=== PATIENT | male | born 1945 | race Caucasian/White ===

== ENCOUNTER 2023-12-22 07:01 | Observation (INO) ==
--- NOTE | 2023-10-13 09:41 | PAT Medication Instructions ---
Medication Instructions Date of Service October 13, 2023 Home Medications Balance Of Nature 1 dose PO UD ascorbic acid (vitamin C) 1,000 mg tablet 1 g PO TID aspirin 81 mg tablet,delayed release 81 mg PO QAM camphor-menthol 0.8 %-3.5 % topical gel 1 applic topical BID PRN carvedilol 12.5 mg tablet 12.5 mg PO BID cholecalciferol (vitamin D3) 25 mcg (1,000 unit) tablet (Vitamin D3) 1,000 mcg PO BID fluticasone propionate 50 mcg/actuation nasal spray,suspension 1 spray intranasal QAM ibuprofen 800 mg tablet 800 mg PO TID PRN Pain lidocaine 5 % topical cream 1 applic topical BID PRN Pain lisinopril 10 mg tablet 10 mg PO QAM magnesium oxide 420 mg tablet 420 mg PO DAILY metformin 1,000 mg tablet 1,000 mg PO BID pregabalin 100 mg capsule 100 mg PO BID rosuvastatin 10 mg tablet 10 mg PO QAM tadalafil 10 mg tablet 10 mg PO DAILY PRN Sexual Activity vitamin B complex 1 tab PO QAM ASK your surgeon for instructions ibuprofen 800 mg tablet 800 mg PO TID PRN Pain STOP taking 2 weeks before surgery (or as soon as possible if surgery is within 2 weeks) Balance Of Nature 1 dose PO UD STOP taking 24 hours before surgery lidocaine 5 % topical cream 1 applic topical BID PRN Pain camphor-menthol 0.8 %-3.5 % topical gel 1 applic topical BID PRN DO NOT take the morning of surgery ascorbic acid (vitamin C) 1,000 mg tablet 1 g PO TID cholecalciferol (vitamin D3) 25 mcg (1,000 unit) tablet (Vitamin D3) 1,000 mcg PO BID lisinopril 10 mg tablet 10 mg PO QAM magnesium oxide 420 mg tablet 420 mg PO DAILY metformin 1,000 mg tablet 1,000 mg PO BID tadalafil 10 mg tablet 10 mg PO DAILY PRN Sexual Activity vitamin B complex 1 tab PO QAM Take morning of surgery With a small sip of water, OTHERWISE NOTHING TO EAT OR DRINK AFTER MIDNIGHT: aspirin 81 mg tablet,delayed release 81 mg PO QAM (continue as normal unless told otherwise by surgeon) carvedilol 12.5 mg tablet 12.5 mg PO BID fluticasone propionate 50 mcg/actuation nasal spray,suspension 1 spray intranasa l QAM pregabalin 100 mg capsule 100 mg PO BID rosuvastatin 10 mg tablet 10 mg PO QAM Take evening before surgery ascorbic acid (vitamin C) 1,000 mg tablet 1 g PO TID carvedilol 12.5 mg tablet 12.5 mg PO BID cholecalciferol (vitamin D3) 25 mcg (1,000 unit) tablet (Vitamin D3) 1,000 mcg PO BID metformin 1,000 mg tablet 1,000 mg PO BID pregabalin 100 mg capsule 100 mg PO BID tadalafil 10 mg tablet 10 mg PO DAILY PRN Sexual Activity (if needed) Other Notes If you have any questions please call us at [phone] or [phone] or [phone] or [phone]
--- NOTE | 2023-10-18 11:37 | History & Physical Report ---
Date of Service October 18, 2023 date of surgery: 11/09/23 Procedure: Left Total Knee Arthroplasty Surgeon: Max Wagner, DO Assessment & Plan (1) Arthritis of knee, left: Plan: Further care discussed with patient and at this point in time has failed conse rvative measures and would like to proceed with a left total knee replacement. Plan on discharge will be home with home health physical therapy. DVT prophylaxiswith TEDs, SCDs and will also place on aspirin 81 mg p.o. b.i.d. for a month postop. Patient will have follow up appointment in our office two weeks post op for staple/suture removal and re-evaluation. Patient otherwise has no other questions or concerns. The risks and benefits have been discussed including, but not limited to, risk of infection, nerve injury, stiffness, loss of motion, failure to improve, etc. Reasonable outcomes and options of treatment were discussed. An explanation of appropriate alternatives to the procedure that may be advantageous were discussed and their risks and benefits, as well as the risks and benefits of not proceeding with treatment. I offered to answer any additional inquiries concerning the treatment involved. All the patient's questions were answered. The patient is agreeable, understanding of the treatment plan and alternatives, and wishes to proceed with the treatment plan. History of Present Illness Chief Complaint: left knee pain Primary Care Provider: NO PCP Ed is a pleasant 78-year-old male who presented for preop evaluation prior to his upcoming left total knee arthroplasty. He has a longstanding history of left knee pain which is gradually worsened and is now affecting his daily activities including walking standing using stairs. Rates his current pain as a 7 out of 10, he has tried oral anti-inflammatory as well as Tylenol without relief. X-rays were reviewed which show advanced generative changes to his left knee, after discussing further care he wishes to proceed with left total knee arthroplasty Allergies Allergy/AdvReac Type Severity Reaction Status Date / Time No Known Allergies Allergy Verified 10/12/23 13:27 Home Medications Medication Instructions Recorded Confirmed Type Balance Of Nature 1 dose PO UD 10/12/23 10/12/23 History ascorbic acid (vitamin C) 1,000 mg 1 g PO TID 10/12/23 10/12/23 History tablet aspirin 81 mg tablet,delayed 81 mg PO QAM 10/12/23 10/12/23 History release camphor-menthol 0.8 %-3.5 % 1 applic topical BID PRN . 10/12/23 10/12/23 History topical gel carvedilol 12.5 mg tablet 12.5 mg PO BID 10/12/23 10/12/23 History cholecalciferol (vitamin D3) 25 1,000 mcg PO BID 10/12/23 10/12/23 History mcg (1,000 unit) tablet (Vitamin D3) fluticasone propionate 50 1 spray intranasal QAM 10/12/23 10/12/23 History mcg/actuation nasal spray,suspension ibuprofen 800 mg tablet 800 mg PO TID PRN Pain 10/12/23 10/12/23 History lidocaine 5 % topical cream 1 applic topical BID PRN Pain 10/12/23 10/12/23 History lisinopril 10 mg tablet 10 mg PO QAM 10/12/23 10/12/23 History magnesium oxide 420 mg tablet 420 mg PO DAILY 10/12/23 10/12/23 History metformin 1,000 mg tablet 1,000 mg PO BID 10/12/23 10/12/23 History pregabalin 100 mg capsule 100 mg PO BID 10/12/23 10/12/23 History rosuvastatin 10 mg tablet 10 mg PO QAM 10/12/23 10/12/23 History tadalafil 10 mg tablet 10 mg PO DAILY PRN Sexual Activity 10/12/23 10/12/23 History vitamin B complex 1 tab PO QAM 10/12/23 10/12/23 History Past Med/Surg History Medical History Arthritis Diabetes mellitus, type 2 Acute leukemia "borderline" Dr. Oziel Bowman in [place] monitors labs, dx over 20 years Diabetic neuropathy Hypertension Hyperlipidemia Surgical History History of repair of rotator cuff left History of colonoscopy History of cholecystectomy History of tooth extraction Family History Other No family history of adverse response to anesthesia Social History Smoking Status: Never smoker Second Hand Exposure: No; Hx Alcohol Use: No Preferred Language: Armenian Travel Assistant Required: No Beliefs That Will Affect Care: None Current Living Situation: Spouse Feels Safe at Home: Yes Safety Concerns: Feels Safe At This Time Assistive Devices: Glasses and Hearing Aid - Bilateral Assistive Devices Comment: partial upper plate Review of Systems Review of Systems: All systems reviewed & are unremarkable except as noted in HPI & below Constitutional: no fever, no chills and no sweats Respiratory: no cough and no dyspnea Cardiovascular: no chest pain, no dyspnea and no orthopnea Gastrointestinal: no abdominal pain, no nausea and no vomiting Musculoskeletal: as per Subjective / HPI Physical Exam Physical Exam: HT: 6ft 2in WT: 104.3kg Constitutional: WD/WN, vitals as above no acute distress Respiratory: normal respiratory effort, lungs clear to auscultation no respiratory distress, no labored breathing and does not use accessory muscles Cardiovascular: RRR, no murmur, no edema Gastrointestinal (Abdomen): normal bowel sounds, soft, nontender, no hepatosplenomegaly Musculoskeletal: Knee: + knee abnormal to inspection (LEFT KNEE), + effusion (+1 effusion), + limited ROM of knee (ROM 0/3/110), + knee ROM with crepitation, + joint line tenderness (medial joint line) and + Geoffrey's sign positive; no d eformity, no skin erythema, no ecchymosis, no valgus laxity, no varus laxity, anterior drawer test negative, Galdino's sign negative and pivot shift test negative Results & Data Results & Data Diagnostic Findings Left Knee X-ray: left knee series confirm advanced degenerative changes to the left knee, great est medial compartments and patellofemoral joint, showing joint space narrowing, osteophyte formation and subchondral sclerosis. no acute bony pathology noted.
--- NOTE | 2023-10-22 12:22 | Communication Note ---
Date of Service: October 22, 2023 - Patient contacted PAT office reporting symptom onset of nasal congestion, runny nose, pharyngitis and cough productive of yellow sputum 2 days ago. Denies chest discomfort, shortness of breath, wheezing, fever or chills. He [facility]. He was advised we will need to await COVID test result regarding 10/25/23 PAT appointment. He wrote down my contact information and he states he will call our office with COVID test result once he is contacted by [facility] today. He states they advised result will be back before 4 pm today. Patient contacted clinic reporting that COVID test was negative, he was advised that he can keep PAT appointment 10/25/23.
--- NOTE | 2023-10-25 10:14 | Anesthesiology Consultation ---
Date of Service October 25, 2023 Assessment & Plan (1) Encounter for pre-operative examination: - Check BSG AM DOS - Infectious disease screening: Per assessment on 10/25/23: No known infectious disease contacts. Patient reports onset of cold symptoms 10/21/23. Covid test done 10/22/23 ([facility]) was negative (report scanned into [facility]- also negative for flu and RSV*). Patient seen at PAT 10/25- he indicates resolution in symptoms except mild residual congestion (improving). Patient advised to contact PAT/surgeon if symptoms worsen prior to surgery. DOS 11/09. Patient okay to proceed as scheduled without further preop Covid testing pending evaluation DOS. - Outpatient joint assessment: Pt currently scheduled for inpatient pathway. If surgeon requests review for outpatient joint pathway, patient is not recommended candidate for outpatient joint program from anesthesia standpoint. - Heme/onc note (10/06/23): "From an oncology standpoint only, patient may be cleared for surgery.. He has a diagnosis of CLL but is currently on observation and does not require any medication management.. Would advise CBC close to surgery date to be sure platelet count adequate.. Last platelet count was 100,000." > Preop Covid testing done 10/25/23 with platelet count of 106K - at baseline per heme/onc report. At anesthesiologist discretion DOS if updated platelet level needed + decision regarding anesthesia type* Chart Review Chart Review: Acceptable Risk for Surgery and Patient seen in Pre Admission Testing Teaching & Discussion Pre-Anesthesia Teaching/Discussion Notes: Instructed NPO after midnight before surgery,except medications with 15 cc of water. Medication instructions provided according to the PAT guidelines. History Surgery Operation Date: 11/09/23 08:15 Proposed Procedures p Left Total Knee Arthroplasty - Max Wagner DO Height/Weight Height: 6 ft 2 in Weight: 106.5 kg Allergies Allergy/AdvReac Type Severity Reaction Status Date / Time No Known Allergies Allergy Verified 10/12/23 13:27 Medications Home Medications Medication Instructions Recorded Confirmed Last Taken Balance Of Nature 1 dose PO UD 10/12/23 10/12/23 Unknown ascorbic acid (vitamin C) 1,000 mg 1 g PO TID 10/12/23 10/12/23 Unknown tablet aspirin 81 mg tablet,delayed 81 mg PO QAM 10/12/23 10/12/23 Unknown release camphor-menthol 0.8 %-3.5 % 1 applic topical BID PRN . 10/12/23 10/12/23 Unknown topical gel carvedilol 12.5 mg tablet 12.5 mg PO BID 10/12/23 10/12/23 Unknown cholecalciferol (vitamin D3) 25 1,000 mcg PO BID 10/12/23 10/12/23 Unknown mcg (1,000 unit) tablet (Vitamin D3) fluticasone propionate 50 1 spray intranasal QAM 10/12/23 10/12/23 Unknown mcg/actuation nasal spray,suspension ibuprofen 800 mg tablet 800 mg PO TID PRN Pain 10/12/23 10/12/23 Unknown lidocaine 5 % topical cream 1 applic topical BID PRN Pain 10/12/23 10/12/23 Unknown lisinopril 10 mg tablet 10 mg PO QAM 10/12/23 10/12/23 Unknown magnesium oxide 420 mg tablet 420 mg PO DAILY 10/12/23 10/12/23 Unknown metformin 1,000 mg tablet 1,000 mg PO BID 10/12/23 10/12/23 Unknown pregabalin 100 mg capsule 100 mg PO BID 10/12/23 10/12/23 Unknown rosuvastatin 10 mg tablet 10 mg PO QAM 10/12/23 10/12/23 Unknown tadalafil 10 mg tablet 10 mg PO DAILY PRN Sexual Activity 10/12/23 10/12/23 Unknown vitamin B complex 1 tab PO QAM 10/12/23 10/12/23 Unknown Past Medical History Medical History NAY (obstructive sleep apnea) CPAP (compliant) Thrombocytopenia Heme/onc monitoring Leukemia B-cell type Chronic lymphocytic leukemia, Dx 20+ years ago Follows with Dr. Oziel Bowman ([place]), under observation Arthritis Diabetes mellitus, type 2 Diabetic neuropathy Feet Hypertension Hyperlipidemia Exercise / Class Metabolic Activity II 4-5 Yardwork/Stairs/Walk up hill Past Family History Family History Other No family history of adverse response to anesthesia Past Surgical History Surgical History History of repair of rotator cuff left History of colonoscopy History of cholecystectomy History of tooth extraction Past Anesthesia History No Hx of Anesthesia Complications and No Family Hx of Anesthesia Complications History of PONV No Hx of PONV and No Hx of Motion Sickness Social History Smoking Status: Never smoker Do You Dip or Chew Tobacco: No Hx Alcohol Use: No Hx Substance Use: No substance use type: does not use Review of Systems Patient denies chest pain, shortness of breath, dyspnea on exertion, fever, chills, cough, wheezing, palpitations. Physical Exam Vital Signs VITALS BP 111/70 P 66 TEMP 97.8 SP02 94%RA RESP 18 PHYSICAL Full cervical extension range of motion. Full TMJ range of motion. TMD 3 finger breaths (difficult to palpate) Mallampati Score 2 Dentition: partial upper Lungs: clear throughout to auscultation Cardiac: regular rate and rhythm, no murmurs noted Spine: normal Carotid arteries: negative bruit Extremities: no LE edema Thick neck Lab Results Anesthesia Preop Results Results Anesthesia Widget: WBC 7.40 K/ul (4.8-10.8) 10/25/23 Hgb 13.3 g/dl (14.0-18.0) L 10/25/23 Hct 37.4 % (42.0-52.0) L 10/25/23 Plt 106 K/uL (130-400) L 10/25/23 Na 137 mmol/L (136-145) 10/25/23 K 4.9 mmol/L (3.5-5.1) 10/25/23 Cl 106 mmol/L (98-107) 10/25/23 CO2 23 mmol/L (21-32) 10/25/23 BUN 29 mg/dl (6-23) H 10/25/23 Creat 1.37 mg/dl (0.6-1.4) 10/25/23 Glucose Level 258 mg/dl (70-99(Fasting)) H 10/25/23 PT 10.9 Seconds (9.0-12.0) 10/25/23 PTT 30.9 Seconds (21.0-31.0) 10/25/23 INR 1.0 (0.9-1.1) 10/25/23 HA1c 7.3 % (4.5-5.6) H 10/25/23 Urine Color Yellow 10/25/23 Urine Appearance Clear (Clear) 10/25/23 Urine pH 5.0 (4.5-7.5) 10/25/23 Urine Specific [place] 1.027 (1.000-1.030) 10/25/23 Urine Protein Negative (Negative) 10/25/23 Urine Glucose (UA) Negative (Negative) 10/25/23 Urine Ketones Trace (Negative) H 10/25/23 Urine Blood Negative (Negative) 10/25/23 Urine Nitrite Negative (Negative) 10/25/23 Urine Bilirubin Negative (Negative) 10/25/23 Urine Urobilinogen Negative (Negative) 10/25/23 Urine Leukocyte Esterase Negative (Negative) 10/25/23 Blood Type A Positive 10/25/23 Antibody Screen NEGATIVE 10/25/23 Testing Laboratory Results *Preop testing forwarded to PCP per patient request/for continuity of care* Electrocardiogram Date: 10/25/23 NSR at 67bpm. "Normal ECG" Chest X-Ray Date: 10/25/23 FINDINGS: No pneumothorax. No pleural effusions. There are low lung volumes. The cardiac silhouette is mildly enlarged. A few bibasilar linear densities favor subsegmental atelectasis or scarring. Otherwise, no focal lung consolidations to suggest a pneumonia. No evidence for pulmonary edema. No acute fractures identified. Prior cholecystectomy. IMPRESSION: No acute process within the chest. Mild cardiomegaly. Low lung volumes with a few bibasilar linear densities. This favors subsegmental atelectasis or scarring
--- NOTE | 2023-11-23 07:56 | History & Physical Report ---
Date of Service November 23, 2023 date of surgery: 12/22/23 procedure: Left Total Knee Arthroplasty Surgeon: Max Wagner Assessment & Plan (1) Arthritis of knee, left: Plan: Further care discussed with patient and at this point in time has failed conservative measures and would like to proceed with a left total knee replacement. Plan on discharge will be home with home health physical therapy. DVT prophylaxiswith TEDs, SCDs and will also place on aspirin 81 mg p.o. b.i.d. for a month postop. Patient will have follow up appointment in our office two weeks post op for staple/suture removal and re-evaluation. Patient otherwise has no other questions or concerns. The risks and benefits have been discussed including, but not limited to, risk of infection, nerve injury, stiffness, loss of motion, failure to improve, etc. Reasonable outcomes and options of treatment were discussed. An explanation of appropriate alternatives to the procedure that may be advantageous were discussed and their risks and benefits, as well as the risks and benefits of not proceeding with treatment. I offered to answer any additional inquiries concerning the treatment involved. All the patient's questions were answered. The patient is agreeable, understanding of the treatment plan and alternatives, and wishes to proceed with the treatment plan. History of Present Illness Chief Complaint: left knee pain Primary Care Provider: NO PCP Ed is a pleasant 78-year-old male who presented for preop evaluation prior to his upcoming left total knee arthroplasty. He has a longstanding history of left knee pain which is gradually worsened and is now affecting his daily activities including walking standing using stairs. Rates his current pain as a 7 out of 10, he has tried oral anti-inflammatory as well as Tylenol without relief. X-rays were reviewed which show advanced generative changes to his left knee, after discussing further care he wishes to proceed with left total knee arthroplasty Allergies Allergy/AdvReac Type Severity Reaction Status Date / Time No Known Allergies Allergy Verified 10/12/23 13:27 Home Medications Medication Instructions Recorded Confirmed Type Balance Of Nature 1 dose PO UD 10/12/23 10/12/23 History ascorbic acid (vitamin C) 1,000 mg 1 g PO TID 10/12/23 10/12/23 History tablet aspirin 81 mg tablet,delayed 81 mg PO QAM 10/12/23 10/12/23 History release camphor-menthol 0.8 %-3.5 % 1 applic topical BID PRN . 10/12/23 10/12/23 History topical gel carvedilol 12.5 mg tablet 12.5 mg PO BID 10/12/23 10/12/23 History cholecalciferol (vitamin D3) 25 1,000 mcg PO BID 10/12/23 10/12/23 History mcg (1,000 unit) tablet (Vitamin D3) fluticasone propionate 50 1 spray intranasal QAM 10/12/23 10/12/23 History mcg/actuation nasal spray,suspension ibuprofen 800 mg tablet 800 mg PO TID PRN Pain 10/12/23 10/12/23 History lidocaine 5 % topical cream 1 applic topical BID PRN Pain 10/12/23 10/12/23 History lisinopril 10 mg tablet 10 mg PO QAM 10/12/23 10/12/23 History magnesium oxide 420 mg tablet 420 mg PO DAILY 10/12/23 10/12/23 History metformin 1,000 mg tablet 1,000 mg PO BID 10/12/23 10/12/23 History pregabalin 100 mg capsule 100 mg PO BID 10/12/23 10/12/23 History rosuvastatin 10 mg tablet 10 mg PO QAM 10/12/23 10/12/23 History tadalafil 10 mg tablet 10 mg PO DAILY PRN Sexual Activity 10/12/23 10/12/23 History vitamin B complex 1 tab PO QAM 10/12/23 10/12/23 History Past Med/Surg History Medical History NAY (obstructive sleep apnea) CPAP (compliant) Thrombocytopenia Heme/onc monitoring Leukemia B-cell type Chronic lymphocytic leukemia, Dx 20+ years ago Follows with Dr. Oziel Bowman ([place]), under observation Arthritis Diabetes mellitus, type 2 Diabetic neuropathy Feet Hypertension Hyperlipidemia Surgical History History of repair of rotator cuff left History of colonoscopy History of cholecystectomy History of tooth extraction Family History Other No family history of adverse response to anesthesia Social History Smoking Status: Never smoker Second Hand Exposure: No; Do You Dip or Chew Tobacco: No; Hx Alcohol Use: No Hx Substance Use: No Preferred Language: Norwegian Scanning Coordinator Required: No Beliefs That Will Affect Care: None Current Living Situation: Spouse Feels Safe at Home: Yes Safety Concerns: Feels Safe At This Time Assistive Devices: Glasses and Hearing Aid - Bilateral Assistive Devices Comment: partial upper plate Review of Systems Constitutional: no fever, no chills and no sweats Respiratory: no cough and no dyspnea Cardiovascular: no chest pain, no dyspnea and no orthopnea Gastrointestinal: no abdominal pain, no nausea and no vomiting Musculoskeletal: as per Subjective / HPI Physical Exam Physical Exam: HT: 6ft 2in WT: 104.3kg Constitutional: WD/WN, vitals as above no acute distress Respiratory: normal respiratory effort, lungs clear to auscultation no respiratory distress, no labored breathing and does not use accessory muscles Cardiovascular: RRR, no murmur, no edema Gastrointestinal (Abdomen): normal bowel sounds, soft, nontender, no hepatosplenomegaly Musculoskeletal: Knee: + knee abnormal to inspection (LEFT KNEE), + effusion (+1 effusion), + surgical incision (well healed portals), + limited ROM of knee (ROM 0/3/110), + knee ROM with crepitation, + joint line tenderness (medial joint line) and + Geoffrey's sign positive; no deformity, no skin erythema, no ecchymosis, no valgus laxity, no varus laxity, anterior drawer test negative, Galdino's sign negative and pivot shift test negative Results & Data Results & Data Diagnostic Findings Left Knee X-ray: left knee series confirm advanced degenerative changes to the left knee, greatest medial compartments and patellofemoral joint, showing joint space narrowing, osteophyte formation and subchondral sclerosis. no acute bony pathology noted.
[~2023-12-22 07:01] MED LIST: ACETAMINOPHEN 500 MG TAB PO SCH; BUPIVACAINE 0.25% PF 30 ML VIAL ONE; BUPIVACAINE 0.5 % 5 MG/1 ML PF 10ML VIAL ONE; CeleBREX 200 MG CAP PO SCH; FAMOTIDINE 20 MG TAB PO SCH; GABAPENTIN 300 MG CAP PO SCH; LR 15ML/HR IV SCH; LR 60ML/HR IV SCH; METOCLOPRAMIDE HCL 10 MG TABLET PO SCH; ROPIV 0.5% 246mg, Ketorolac 30mg, EPINEPHrine 0.5mg in NSS INFIL SCH; ROPIVACAINE 0.5% HCL/PF 150 MG, BUPIVACAINE 0.75% MPF 20 ML, EPINEPHrine 30MG/30ML (OR ... INSTIL SCH; TRANEXAMIC ACID 1,000 MG **IV Intra-op IV SCH; TRANEXAMIC ACID 1,000 MG **IV Pre-op IV SCH; ceFAZolin 2000MG 2,000 MG/15 ML SYR IV SCH
[2023-12-22] MEDS ORDERED: MIDAZOLAM HCL 1 MG/ML 2ML VIAL ONE ×2 (08:12→08:13)
[2023-12-22] MEDS ORDERED: PROPOFOL IV EMULSION 10 MG/ML 20 ML VIAL IV ONE ×2 (08:13→10:53)
[2023-12-22] MEDS ORDERED: ONDANSETRON INJ 2 MG/ML 2 ML VIAL ONE (08:13)
[2023-12-22] MEDS ORDERED: LIDOCAINE 2% 2 ML VIAL/AMP(20MG/ML) INFIL ONE (08:13)
--- NOTE | 2023-12-22 08:15 | History & Physical Bridge Note ---
Date of Service December 22, 2023 History & Physical Bridge Note I have examined the patient, reviewed the History & Physical and in the interval since the performance of the History & Physical I have noted the following changes of clinical significance: no changes noted
[2023-12-22] MEDS ORDERED: ONDANSETRON INJ 2 MG/ML 2 ML VIAL IV PRN ×2 (08:40→14:07)
[2023-12-22] MEDS ORDERED: ePHEDrine sulfate 50 MG/ML AMP IV PRN (08:40)
[2023-12-22] MEDS ORDERED: ATROPINE SULFATE 0.1 MG/ML 10ML SYR IV PRN (08:40)
[2023-12-22] MEDS ORDERED: fentaNYL citrate PF 100 MCG/2 ML VIAL IV PRN (08:40)
[2023-12-22] MEDS ORDERED: ORTHO JOINT ANESTHETIC ONE (08:51)
[2023-12-22] MEDS ORDERED: ePHEDrine sulfate 50 MG/ML AMP ONE (09:53)
--- NOTE | 2023-12-22 11:00 | Operative Report ---
Post Operative Report Pre & Post Diagnosis Operation Date: 12/22/23 09:00 Pre-Op Diagnosis: Left Knee Degenerative Joint Disease Post-Op Diagnosis: Left Knee Degenerative Joint Disease I identified the patient and participated in the time-out.: Yes Procedure Operation Date: 12/22/23 09:00 Actual Procedures p Left Total Knee Arthroplasty(Left) Utilizing [employer] journey 2 patient- matched total knee arthroplasty size femur 6 tibia 6 poly 12 patella 35- Max Wagner DO Surgeon Max Wagner DO Content Creation Manager Fredrick NAVARRO Estimated Blood Loss 5 Findings Consistent with Post-Op Diagnosis Patient presents with severe end-stage tricompartmental DJD varus alignment subchondral sclerosis marginal osteophytes moderate to large effusion eburnated [id number] Specimens Bone and cartilage Drains Medium bore Hemovac Anesthesia Type MAC Spinal Regional Complications none Disposition Accompanied Patient To Recovery: No Disposition: Recovery Room Indications Patient presents with severe end-stage tricompartmental DJD of the left knee having failed attempted conservative management occluding physical therapy anti- inflammatories relative rest activity modification corticosteroid injections the patient presents with the above intraoperative findings Description of Procedure After proper prepping and draping of the left lower extremity anterior midline incision was made over the region of the extensor extensor mechanism after meticulous hemostasis was obtained and maintained in subcutaneous tissues a medial parapatellar incision was made The patella was subluxed lateralward the medial lateral gutter were cleaned from any hypertrophic synovitis and scar tissue of the distal femoral block was placed and the distal femoral osteotomy cut was made subsequently the chamfers anterior and posterior osteotomy cuts were made utilizing the 4-in-1 block the tibia was subsequently subluxed anteriorward medial and ateral meniscal remnants were excised in their entirety remnants of the anterior and posterior cruciate ligaments were excised in their entirety excellent exposure of the proximal tibia was obtained the tibial osteotomy guide was placed on the proximal tibial osteotomy cut was made once again the knee was irrigated with copious amounts of sterile saline solution the patella was subsequently everted lateralward thickened scar tissue around the patella was removed the patella was subsequently cut utilizing a freehand technique and was drilled prepared for final preparation and placement of patella socially flexion-extension gaps were checked and the equal and symmetric trials were placed to the appropriate femoral and tibial trials with poly-spacer being placed for equal flexion and extension gaps and full range of motion including extension to 0 and flexion to 140 the trial components after having been taken to recovery range of motion was subsequently removed meticulous hemostasis was obtained and maintained subsequently a knee block injection of joint cocktail including ropivacaine 0.5% 150 mg. Bupivacaine 0.5% epinephrine 1-200,030 mL's toradol 30 mg dexamethasone 4 mg ketamine 10 mg clonidine 100 micrograms normal saline solution 30 mg was infiltrated into the soft tissues of the posterior knee medial lateral gutters and periosteal synovium special attention was paid to protect neurovascular structures at all times subsequently trial components having been removed the knee was irrigated with sterile saline solution. debris was removed the proximal tibia was subsequently prepared and was made ready for the placement of the tibial component tibial component was also cemented and tamped into position the femoral component was subsequently placed and cemented in the position the patellar component was subsequently cemented in position because hemostasis once again obtained and maintained wound having been thoroughly irrigated with debridement and debridement lavage was performed as well as a medial parapatellar incision closed with #1 Vicryl in interrupted fashion subcutaneous was closed with #2 Vicryl skin was closed with skin clips. PA-C was necessary for prepping and drapping as well as wound closure of deep fascia Sub cutaneous tissue and skin and was necessary for the case. A sterile compressive dressing was placed patient was taken to recovery in stable condition of report dictated by Bernard I attest to the content of the Intraoperative Record and any orders documented therein. Any exceptions are noted below.Due to the complex nature of the procedure, the entire surgery was performed with the operational assistance of RAMON Norman. The case management assistant, under direct supervision, was involved in the actual performance of all aspects of the surgical procedure including hemostasis, tissue retraction and incision, instrument management, patient positioning, and wound closure. I attest to the content of the Intraoperative Record and any orders documented therein. Any exceptions are noted below.
--- NOTE | 2023-12-22 11:55 | XRay Report ---
LEFT KNEE 2 VIEWS History: Left total knee arthroplasty. Degenerative arthritis. Postop. FINDINGS: The patient is status post a left total knee arthroplasty. The hardware is intact. No fract ure or dislocation. Surgical drains are in place. IMPRESSION: Left total knee arthroplasty. No evidence for hardware complication. ACT 112: Negative or not required by law. Electronically signed by: Chandu Choi M.D. 12/22/2023 11:53 AM
[2023-12-22] MEDS ORDERED: PHARMACY GLYCEMIC MGMT CONSULT PRN (14:07)
[2023-12-22] MEDS ORDERED: MAGNESIUM HYDROXIDE SUSP 30 ML UDC PO PRN (14:07)
[2023-12-22] MEDS ORDERED: oxyCODONE HCL IR 5 MG TAB (IMMEDIATE RELEASE) PO PRN (14:07)
[2023-12-22] MEDS ORDERED: HYDROmorphone INJ 1 MG/ML SYRINGE IV PRN (14:07)
[2023-12-22] MEDS ORDERED: diphenhydrAMINE Capsule 25 MG CAP PO PRN (14:07)
[2023-12-22] MEDS ORDERED: MENTHOL TOP PRN (14:07)
[2023-12-22] MEDS ORDERED: CAMPHOR TOP PRN (14:07)
[2023-12-22] MEDS ORDERED: NALOXONE HCL 0.4 MG/1 ML VIAL/CARP IV PRN (14:07)
[2023-12-22] MEDS ORDERED: bisacodyL 10 MG SUPP PR PRN (14:07)
[2023-12-22] MEDS ORDERED: METOCLOPRAMIDE HCL INJ 5 MG/ML 2 ML VIAL IV PRN (14:07)
[2023-12-22] MEDS: SODIUM CHLORIDE 0.9% 1,000 ML IV SCH (14:34)
[2023-12-22] MEDS ORDERED: LANTUS PER UNIT CHARGE SC ONE ×2 (15:00→21:00)
[2023-12-22] MEDS ORDERED: GLUCOSE 40% GEL 15 GM TUBE PO PRN (15:00)
[2023-12-22] MEDS ORDERED: GLUCOSE 10 TAB/TUBE PO PRN (15:00)
[2023-12-22] MEDS ORDERED: CARBOHYDRATES FOR HYPOGLYCEMIA PO PRN (15:00)
[2023-12-22] MEDS ORDERED: DEXTROSE 50% 50 ML SYRINGE IV PRN (15:00)
[2023-12-22] MEDS ORDERED: GLUCAGON FOR INJ 1 MG VIAL IM PRN (15:00)
--- NOTE | 2023-12-22 15:01 | Pharmacy Report ---
Pharmacy Glycemic Short Note 2 - Date of Service December 22, 2023 - Glycemic Short BSG Results (Last 24 hours): 12/22/23 12/22/23 07:38 11:31 POC Glucose 213 H 185 H OUTPATIENT ANTIDIABETIC REGIMEN: * Metformin 1g PO BID * A1c 7.3% 10/25/23 ASSESSMENT: * 78 yo male s/p L TKA, type 2 diabetic managed on metformin alone at home. Type 2 DM diet ordered. * Will utilize basal bolus insulin while inpatient for better glycemic control post-op, and until patient can resume home metformin. PLAN FOR INPATIENT GLYCEMIC CONTROL: * Hold outpatient oral diabetes medications * Basal insulin * Lantus 15 units SQ x 1 dose now, 15 units HS for BSG > 180mg/dl * Bolus insulin * NovoLog per scale ACHS or Q6hrs while NPO * Goal Range: Low 110 mg/dL - High 140 mg/dL * Correction Factor: 25 mg/dL/unit * Nutritional / Prandial insulin per carb ratio of 1 unit per 8 grams CHO consumed
--- NOTE | 2023-12-22 15:07 | Anesthesiology Progress Note ---
Date of Service December 22, 2023 Anesthesia Post Procedure Vital Signs Vital Signs: Temp Pulse Pulse Resp BP Pulse Ox O2 Del Method 12/22/23 14:30 36.8 C 70 18 132/77 94 Room Air 12/22/23 14:00 36.8 C 62 20 128/74 93 Room Air 12/22/23 13:15 36.8 C 63 16 118/76 97 Nasal Cannula 12/22/23 13:05 62 15 120/69 98 Nasal Cannula 12/22/23 12:55 66 16 111/60 97 Nasal Cannula 12/22/23 12:45 58 L 18 112/55 L 97 Nasal Cannula 12/22/23 12:35 59 L 17 113/60 93 Room Air 12/22/23 12:25 62 15 125/61 94 Room Air 12/22/23 12:15 57 L 16 119/60 93 Room Air 12/22/23 12:05 59 L 16 129/65 91 Room Air 12/22/23 11:55 59 L 18 122/66 94 Room Air 12/22/23 11:45 58 L 17 117/69 98 Oxymask 12/22/23 11:35 58 L 15 136/69 98 Oxymask 12/22/23 11:28 36.4 C L 61 20 117/63 98 Oxymask 12/22/23 07:40 36.9 C 73 18 141/81 H 95 Room Air O2 Flow Rate 12/22/23 14:30 12/22/23 14:00 12/22/23 13:15 2 12/22/23 13:05 2 12/22/23 12:55 2 12/22/23 12:45 2 12/22/23 12:35 12/22/23 12:25 12/22/23 12:15 12/22/23 12:05 12/22/23 11:55 12/22/23 11:45 5 12/22/23 11:35 5 12/22/23 11:28 5 12/22/23 07:40 Transfer of Care Handoff Completed per policy Notes Mental Status: alert / awake / arousable and participated in evaluation Patient Amnestic to Procedure: Yes Nausea / Vomiting: adequately controlled Pain: adequately controlled Airway Patency, RR, SpO2: stable & adequate BP & HR: stable & adequate Hydration State: stable & adequate Neuraxial Anesthesia: was administered and sensory block is resolving Anesthetic Complications: no major complications apparent and Pt Satisfied with anesthetic care
[2023-12-22] MEDS: ASCORBIC ACID 500 MG TAB PO SCH ×2 (15:23→20:37)
[2023-12-22] MEDS: ACETAMINOPHEN 500 MG TAB PO SCH ×2 (15:23→22:26)
[2023-12-22] MEDS: KETOROLAC TROMETHAMINE 15 MG/ML VIAL IV SCH ×2 (15:24→20:37)
[2023-12-22] MEDS: INSULIN ASPART PER UNIT CHARGE SC SCH ×3 (15:34→21:27)
[2023-12-22] MEDS: ceFAZolin 2000MG 2,000 MG/15 ML SYR IV SCH (17:24)
[2023-12-22] MEDS: carvediloL 12.5 MG TAB PO SCH (18:01)
[2023-12-22] MEDS: PREGABALIN 100 MG CAP PO SCH (20:37)
[2023-12-22] MEDS: DOCUSATE SODIUM 100 MG CAP PO SCH (20:38)
[2023-12-22] MEDS: ASPIRIN 81 MG ECTAB PO SCH (20:38)
[2023-12-22] MEDS: GABAPENTIN 300 MG CAP PO SCH (20:38)
[2023-12-22] MEDS: CHOLECALCIFEROL 25 MCG (1000 UNITS) TAB PO SCH (20:39)
[2023-12-22] MEDS ORDERED: SENNA 8.6 MG TAB PO SCH (21:00)
[2023-12-23] MEDS: SODIUM CHLORIDE 0.9% 1,000 ML IV SCH (01:14)
[2023-12-23] MEDS: ceFAZolin 2000MG 2,000 MG/15 ML SYR IV SCH (01:53)
[2023-12-23] MEDS: KETOROLAC TROMETHAMINE 15 MG/ML VIAL IV SCH ×2 (01:53→07:33)
[2023-12-23] MEDS: ACETAMINOPHEN 500 MG TAB PO SCH (05:11)
[2023-12-23 06:50] LABS: Hematocrit (blood only) 32.4 % (42.0-52.0); Hemoglobin 11.2 g/dl (14.0-18.0); Mean Corpuscular Hemoglobin 31.7 pg (25.0-34.0); Mean Corpuscular Hgb Conc 34.6 g/dL (32.0-36.0); Mean Corpuscular Volume 91.8 fL (80.0-100.0); Mean Platelet Volume 9.6 fL (9.4-12.4); Platelet Count 104 K/uL (130-400); RDW Coefficient of Variation 13.4 % (11.5-14.5); RDW Standard Deviation 43.8 fL (36.4-46.3); Red Blood Count 3.53 M/uL (4.70-6.10); White Blood Count 7.04 K/ul (4.8-10.8)
[2023-12-23 07:01] LABS: BUN Creatinine Ratio 21.4 (10-20); Calcium 8.9 mg/dl (8.6-10.3); Creatinine Clr Calc Pharmacy 72.5 ml/min; Est GFR (African American) 73.6 ml/min; Est GFR (Non-African American) 63.5 ml/min; Potassium 5.1 mmol/L (3.5-5.1)
--- NOTE | 2023-12-23 07:04 | Orthopedic Progress Note ---
Date of Service December 23, 2023 Assessment & Plan (1) History of total left knee replacement: Plan: POD #1 s/p left TKA pt/ot dvt proph with LEON/SCD/ASA plan for d/c home with HHPT if able to set up with the [facility], otherwise will do outpatient at the [place] in [place]. Admission and Anticipated Discharge Date Admission Date: December 22, 2023 Subjective POD #1 s/p Left TKA Review of Systems Constitutional: no fever, no chills and no sweats Respiratory: no cough and no dyspnea Cardiovascular: no chest pain and no dyspnea Gastrointestinal: no abdominal pain, no nausea and no vomiting Physical Exam Physical Exam: Vital Signs Temp 36.5 C 12/23/23 02:21 Pulse 62 12/23/23 02:21 Resp 16 12/23/23 02:21 BP 135/72 12/23/23 02:21 Pulse Ox 92 12/23/23 02:21 O2 Del Method Room Air 12/23/23 02:21 O2 Flow Rate 2 12/22/23 13:15 Intake & Output 12/22/23 12/23/23 12/23/23 18:59 06:59 18:59 Intake Total 1740 / 2980 1240 / 2980 Output Total 105 / 430 325 / 430 Balance 1635 / 2550 915 / 2550 Weight 105.2 kg 105.2 kg Intake: IV 200 / 1200 1000 / 1200 Lactated Ringe r's 1,000 ml @ 15 0 / 0 mls/hr IV .Q24 H RICHARD Rx#: [id number] Sodium Chlorid e 0.9% 1,000 ml @ 1000 / 1000 100 mls/hr IV .Q10H RICHARD Rx#: [id number] Tranexamic Aci d / 0.7% NaCl 1, 200 / 200 000 mg In 100 ml @ 600 mls/hr IV TODAY@0600 RICHARD Rx#:[id number] IV Perioperative 1300 / 1300 Oral 240 / 480 240 / 480 Output: Estimated Blood Loss 5 / 5 Drain Output 100 / 425 325 / 425 Left Knee 100 / 425 325 / 425 Other: # Unmeasured Voi ds 1 Weight Measureme nt Method Standing Scale Musculoskeletal: Left Leg: NVDI, calf SNT, negative kari sign. DP palpable, able to wiggle toes/ankle movement without difficulty. dressing clean dry and intact. Results & Data Vital Signs (Past 12 Hours) Vital Signs Temp Pulse Resp BP Pulse Ox O2 Del Method 12/23/23 02:21 36.5 C 62 16 135/72 92 Room Air 12/22/23 23:31 36.8 C 60 18 132/74 96 Room Air 12/22/23 20:20 Room Air 12/22/23 20:06 36.6 C 63 18 125/68 98 Room Air Laboratory Results Laboratory Results WBC 7.04 K/ul (4.8-10.8) 12/23/23 05:27 RBC 3.53 M/uL (4.70-6.10) L 12/23/23 05:27 Hgb 11.2 g/dl (14.0-18.0) L 12/23/23 05:27 Hct 32.4 % (42.0-52.0) L 12/23/23 05:27 MCV 91.8 fL (80.0-100.0) 12/23/23 05:27 MCH 31.7 pg (25.0-34.0) 12/23/23 05:27 MCHC 34.6 g/dL (32.0-36.0) 12/23/23 05:27 RDW Std Deviation 43.8 fL (36.4-46.3) 12/23/23 05:27 RDW Coeff of [place] 13.4 % (11.5-14.5) 12/23/23 05:27 Plt Count 104 K/uL (130-400) L 12/23/23 05:27 MPV 9.6 fL (9.4-12.4) 12/23/23 05:27 Sodium 136 mmol/L (136-145) 12/23/23 05:27 Potassium 5.1 mmol/L (3.5-5.1) 12/23/23 05:27 Chloride 106 mmol/L (98-107) 12/23/23 05:27 Carbon Dioxide 24 mmol/L (21-32) 12/23/23 05:27 Anion Gap 6 (3-11) 12/23/23 05:27 BUN 24 mg/dl (6-23) H 12/23/23 05:27 Creatinine 1.12 mg/dl (0.6-1.4) 12/23/23 05:27 Est Cr Clr Drug Dosing 72.5 ml/min 12/23/23 05:27 Est GFR ( Amer) 73.6 ml/min 12/23/23 05:27 Est GFR (Non-Af Amer) 63.5 ml/min 12/23/23 05:27 BUN/Creatinine Ratio 21.4 (10-20) H 12/23/23 05:27 Glucose 157 mg/dl (70-99(Fasting)) H 12/23/23 05:27 POC Glucose 167 mg/dl (70-99) H 12/22/23 20:34 Calcium 8.9 mg/dl (8.6-10.3) 12/23/23 05:27 Impressions Knee X-Ray 12/22/23 11:31 LEFT KNEE 2 VIEWS History: Left total knee arthroplasty. Degenerative arthritis. Postop. FINDINGS: The patient is status post a left total knee arthroplasty. The hardware is intact. No fracture or dislocation. Surgical drains are in place. IMPRESSION: Left total knee arthroplasty. No evidence for hardware complication. ACT 112: Negative or not required by law. Electronically signed by: Chandu Choi M.D. 12/22/2023 11:53 AM
--- NOTE | 2023-12-23 07:08 | Discharge Summary ---
Date of Service date of discharge: December 23, 2023 date of admission: 12/22/23 Admission HPI Per Admitting Provider Ed is a pleasant 78-year-old male who presented for preop evaluation prior to his upcoming left total knee arthroplasty. He has a longstanding history of left knee pain which is gradually worsened and is now affecting his daily activities including walking standing using stairs. Rates his current pain as a 7 out of 10, he has tried oral anti-inflammatory as well as Tylenol without relief. X-rays were reviewed which show advanced generative changes to his left knee, after discussing further care he wishes to proceed with left total knee arthroplasty Principal Diagnosis left knee osteoarthritis Discharge Exam Vital Signs Temp 36.5 C 12/23/23 02:21 Pulse 62 12/23/23 02:21 Resp 16 12/23/23 02:21 BP 135/72 12/23/23 02:21 Pulse Ox 92 12/23/23 02:21 O2 Del Method Room Air 12/23/23 02:21 O2 Flow Rate 2 12/22/23 13:15 Intake & Output 12/22/23 12/23/23 12/23/23 18:59 06:59 18:59 Intake Total 1740 / 2980 1240 / 2980 Output Total 105 / 430 325 / 430 Balance 1635 / 2550 915 / 2550 Weight 105.2 kg 105.2 kg Intake: IV 200 / 1200 1000 / 1200 Lactated Ringer's 1,000 ml @ 15 0 / 0 mls/hr IV .Q24H RICHARD Rx#: [id number] Sodium Chloride 0.9% 1,000 ml @ 1000 / 1000 100 mls/hr IV .Q10H RICHARD Rx#: [id number] Tranexamic Acid / 0.7% NaCl 1, 200 / 200 000 mg In 100 ml @ 600 mls/hr IV TODAY@0600 RICHARD Rx#:[id number] IV Perioperative 1300 / 1300 Oral 240 / 480 240 / 480 Output: Estimated Blood Loss 5 / 5 Drain Output 100 / 425 325 / 425 Left Knee 100 / 425 325 / 425 Other: # Unmeasured Voids 1 Weight Measurement Method Standing Scale Musculoskeletal left knee: NVDI, calf SNT, negative kari sign. DP palpable, able to wiggle toes/ankle movement without difficulty. NELSON dressing clean dry and intact. Discharge Data Allergies Allergy/AdvReac Type Severity Reaction Status Date / Time No Known Allergies Allergy Verified 12/22/23 07:39 Procedures Performed Operation Date: 12/22/23 09:00 Actual Procedures p Left Total Knee Arthroplasty(Left) - Max Wen DO Ordered Studies 12/22/23 05:00 US - OR guided needle placemen Routine Hospital Course (1) History of total left knee replacement: POD #1 s/p left TKA pt/ot dvt proph with LEON/SCD/ASA plan for d/c home with HHPT if able to set up with the [facility], otherwise will do outpatient at the [facility] in [place]. Total Time Total Time Spent Total Time Spent (In Minutes): 20 Discharge Plan Discharge Items Patient Disposition: Home - Home Health Services Reason For Visit: Left Knee Osteoarthritis Discharge Diagnosis: post op left TKA Activity: Per Instructions section Weightbearing Comment: WBAT with walker Non-emergency contact: Surgeon Call non-emergency contact if: you have any medication questions, your temperature is above 101, your wound has increased redness, your wound has increased drainage and your wound pain has increased Follow-up/Referrals: Jaye García CRNP [Primary Care Provider] - Diet: Regular Addtl Attending Provider Instructions: ACTIVITY RECOMMENDATIONS: SELF CARE INSTRUCTIONS AFTER TOTAL KNEE REPLACEMENT A. You may need to continue a physical therapy program after discharge from the hospital. There are several options available to you. Your doctor will assist you in selecting the best one for you. 1. An out-patient facility 2 to 3 times a week for therapy or home therapy. 2. Continue working on all exercises taught to you in the hospital. Your goals should be to increase bending of your knee to 90 degrees and beyond and to fully straighten your knee. B. You may progress at your own pace from walking with a walker or crutches to a cane; then to no assistive devices. C. Make walking a part of your daily routine. Be up as much as comfortable with rest periods throughout the day. Rest with leg elevation is very important. Use the ice wrap frequently for the first 3-4 weeks. D. There are no restrictions on activities. You may ride in a car, shop, participate in dredge lever operator and all social activities. E. Wear the long elastic stockings (LEON hose) 20 hours a day for 2 weeks after surgery. They can be removed several times a day for laundering and for a bath. F. You may shower, no tub baths until cleared by your doctor. SPECIAL CARE INSTRUCTIONS: VERY IMPORTANT TO READ AND REVIEW A. There are a few signs you need to watch for after you are home. Call [facility] if you notice any of the followin. Increased severe knee pain. Some pain is expected especially when you exercise. 2. Increased swelling in your leg or knee; pain or swelling of the calf muscle in either lower leg. 3. Any fluid drainage from the incision. 4. Shortness of breath or chest pain. B. Please call [facility] at if you have any concerns or questions about your operation or recovery. The doctor or his nurse will return your call promptly. C. You must take antibiotics before dental work, bladder, bowel or other surgery. Your doctor will provide you with a permanent care to carry describing this precaution. IMPORTANT: * REMEMBER TO TAKE ASPIRIN, 81 MG, TWICE DAILY FOR 4 WEEKS UNLESS OTHERWISE DIRECTED. THIS IS YOUR BLOOD THINNER. * HIGH RISK PATIENTS MAY BE PRESCRIBED A STRONGER BLOOD THINNER. THIS WILL BE PROVIDED AT DISCHARGE. * CALL IF INCREASED PAIN, REDNESS, DRAINAGE OR FEVER GREATER THAT 101. * WEAR LEON HOSE 20 HOURS PER DAY FOR 2 WEEKS. DRESSING INSTRUCTIONS * NELSON Dressing- This is a large suction dressing covering your incision. This will help pull any excess drainage from the wound and allow your incision to heal properly. You may shower with this if you can keep the unit outside of the shower. If any bleeding or leakage is noted please call your doctor's office. This will remain on your incision for 7 days and then should be removed. This can be done yourself or by the home nursing staff if applicable. The entire unit is disposable once removed. Once removed, keep incision clean and dry. If redness or drainage is noted, please call your surgeon. ONCE NELSON IS REMOVED, FOLLOW THESE INSTRUCTIONS: DERMABOND Prineo- This is a mesh tape dressing that is covered with glue. It should remain in place until the incision is properly healed, usually 10-14 days. This dressing is designed to naturally slough off. You may trim the excess mesh tape as it peels off. Incision may be briefly wet in a shower. Dry immediately by blotting with a clean, dry towel. Do not bath or swim until instructed by your doctor. Do not scratch, rub, or pick at the dressing. Do not apply any topical ointments or lotions until dressing is completely removed and/or instructed by your doctor. There may be a small piece of suture material at one end of your incision. Do not pull or trim this. If it is bothersome or catching on clothing, you may cover it with a band-aid. IF INCISION IS LEAKING THROUGH DRESSING, CALL THE OFFICE . FOLLOW UP VISIT: If appointment is not already scheduled: Please call [facility] to make a follow-up appointment for 2 weeks after your surgery at . Pending Studies at Discharge: No Stand-Alone Forms: My [facility] Medications and DC Order Prescriptions: New celecoxib [Celebrex] 200 mg capsule 200 mg PO BID 30 Days Qty: 60 0RF aspirin 81 mg tablet,delayed release (DR/EC) 81 mg PO BID 30 Days Qty: 60 0RF acetaminophen 500 mg tablet 1,000 mg PO Q8 21 Days Qty: 126 0RF cefadroxil 500 mg capsule 500 mg PO BID 14 Days Qty: 28 0RF docusate sodium 100 mg Capsule 100 mg PO BID Qty: 20 0RF oxycodone 5 mg tablet 5 - 10 mg PO Q6H PRN (Reason: pain) Qty: 30 0RF Rx Instructions: ongoing therapy, supervising dr isaias ewn. max 6 tabs in 24 hours. date of surgery: 12/22/23 Continued ascorbic acid (vitamin C) 1,000 mg Tablet 1 g PO TID carvedilol 12.5 mg Tablet 12.5 mg PO BID Rx Instructions: must administer with a meal/food magnesium oxide 420 mg Tablet 420 mg PO DAILY lidocaine 5 % Cream 1 applic TOPICAL BID PRN (Reason: Pain) metformin 1,000 mg Tablet 1,000 mg PO BID lisinopril 10 mg Tablet 10 mg PO QAM vitamin B complex Tablet 1 tab PO QAM fluticasone propionate 50 mcg/actuation [place],Suspension 1 spray INTRANASAL QAM Rx Instructions: administer into each nostril rosuvastatin 10 mg Tablet 10 mg PO QAM tadalafil 10 mg Tablet 10 mg PO DAILY PRN (Reason: Sexual Activity) Rx Instructions: administer approximately 30min before sexual activity; do not use more than 1 dose per 24hrs pregabalin 100 mg Capsule 100 mg PO BID cholecalciferol (vitamin D3) [Vitamin D3] 25 mcg (1,000 unit) Tablet 1,000 mcg PO BID camphor-menthol 0.8-3.5 % Gel 1 applic TOPICAL BID PRN (Reason: Itching) Balance Of Nature 1 dose PO UD Patient Comments: fruit and veggie supplement cetirizine 10 mg Tablet 10 mg PO QAM Nerve Shield 1 cap PO QAM gabapentin 300 mg Capsule 300 mg PO BID Discontinued ibuprofen 800 mg Tablet 800 mg PO TID PRN (Reason: Pain) aspirin [Aspir-81] 81 mg Tablet,Delayed Release (Dr/Ec) 81 mg PO QAM Admission Data Admit Date/Time: 12/22/23 11:31 Attending Provider: Max Wen Admit Provider: Max Wen Primary Care Provider: Jaye García
[2023-12-23] MEDS: carvediloL 12.5 MG TAB PO SCH (07:33)
[2023-12-23] MEDS: ASCORBIC ACID 500 MG TAB PO SCH (07:34)
[2023-12-23] MEDS: GABAPENTIN 300 MG CAP PO SCH (07:34)
[2023-12-23] MEDS: DOCUSATE SODIUM 100 MG CAP PO SCH (07:36)
[2023-12-23] MEDS: ASPIRIN 81 MG ECTAB PO SCH (07:37)
[2023-12-23] MEDS: CHOLECALCIFEROL 25 MCG (1000 UNITS) TAB PO SCH (07:39)
[2023-12-23] MEDS: PREGABALIN 100 MG CAP PO SCH (07:55)
[2023-12-23] MEDS: INSULIN ASPART PER UNIT CHARGE SC SCH (08:17)
[2023-12-23] MEDS ORDERED: ROSUVASTATIN CALCIUM 10 MG TAB PO SCH (09:00)
[2023-12-23] MEDS ORDERED: MULTIVITAMIN TAB PO SCH (09:00)
[2023-12-23] MEDS ORDERED: lisinopril 10 MG TAB PO SCH (09:00)
[2023-12-23] MEDS ORDERED: CeleBREX 200 MG CAP PO SCH (09:00)
[2023-12-23] MEDS ORDERED: FLUTICASONE PROPIONATE NA SPR 16 GM BTL NAE SCH (09:00)
[2023-12-23] MEDS ORDERED: CETIRIZINE HCL 10 MG TABLET PO SCH (09:00)
[2023-12-23] MEDS ORDERED: MAGNESIUM OXIDE 400 MG TAB PO SCH (09:00)
[2023-12-23] MEDS ORDERED: LANTUS PER UNIT CHARGE SC SCH (09:00)
[2023-12-23] MEDS ORDERED: CHOLECALCIFEROL 25 MCG (1000 UNITS) TAB PO SCH (21:00)
== END 2023-12-23 11:44 | disposition home health service (06) ==
LOC: ASU 07:01 → 3E 07:01
DX: E11.9 Type 2 diabetes mellitus without complications; I10 Essential (primary) hypertension; Z79.899 Other long term (current) drug therapy; Z79.84 Long term (current) use of oral hypoglycemic drugs; G47.33 Obstructive sleep apnea (adult) (pediatric); Z79.82 Long term (current) use of aspirin; M17.12 Unilateral primary osteoarthritis, left knee; E78.5 Hyperlipidemia, unspecified; D69.6 Thrombocytopenia, unspecified